=== PATIENT | female | born 1930 | race Caucasian/White ===

== ENCOUNTER → 2016-05-24 | Outpatient (CLI) | payer OTHER ==
[~2016-05-24] VITALS: Ht 149.9 cm; Wt 50.3 kg
[~2016-05-24] MED LIST: ADVAIR 100-501 EACH INH; ADVAIR 250-501 EACH INH; ALBUTEROL2.5 MG/0.5 INH; ALPRAZOLAM 0.50.5 MG PO; ASPIRIN325 PO; BUSPAR15 MG PO; BUSPIRONE HCL10 MG PO; CALCIUM CITRAT1 EA19 PO; CEFDINIR300 MG PO; CITRACAL + D C1 EACH PO; COLACE100 MG PO; CYMBALTA30 MG PO; FAMOTIDINE20 MG PO; FISHOIL PO; FOSAMAX PO; GLUCOPHAGE500 MG PO; HYDROCODON-ACE1 EAC8 PO; LEVAQUIN 500 M500 M2 PO; LIDODERM 5%1 PATC1 TRANSDERM; LIQUITUSS200 MG/5 M PO; LISINOPRIL10 MG PO; NEXIUM10 MG PO; NORCO 10-325 T1 EACH PO; PREDNISONE 10 M10 MG; PREDNISONE50 MG PO; PROAIR HFA8.5 GM; SIMVASTATIN40 MG PO; STOPAIN118 ML TP; TEARS NATURALE1 EACH OPHTHALMIC; TESSALON PERLE100 MG PO; TYLENOL325 MG PO; VITAMIN D1000 UNI1 PO; ZPAK PO; forteo
--- NOTE | ~2016-05-24 | HPC ---
[facility] [place] [address] PAIN MANAGEMENT CONSULTATION Name: SUDHIR WHARTON Room #: REG MIHIR Antony#: [id number] Admission: 05/24/16 Attend Phys: Bobby Quiñonez MD Discharge: Date of : 32 Report #: [id number] THIS REPORT FOR: //name// CC: Bobby Claros DATE OF SERVICE: 05/24/2016 Followup visit for severe pain in the right hip. The patient has significant degenerative osteoarthritic right hip. She has been told she is not a surgical candidate. She is here today for an injection. Her daughter is with her. Previous injections have been helpful, but the last one was not so much so. I told her that we would repeat the injection today hopefully providing some relief. Her last injection in our clinic was in April 2015. Pain today is described as severe, 8-9, is painful with all movements of the hip, radiates into the groin. MEDICATIONS: Reviewed. They are lidocaine patch, Cymbalta, hydrocodone, aspirin, albuterol, fluticasone, BuSpar, calcium, albuterol, alprazolam, Nexium, Zocor, Zestril. PHYSICAL EXAMINATION: This is a sweet 85-year-old. She is always so kind to me and complementary when she comes to our clinic. She has mild dementia. Blood pressure is 120/63, heart rate 88, respirations 16. She is able to move from sitting to standing position with complaints bitterly of all movements of the right hip. The Adam test is markedly positive with pain that radiates into the groin. She has no radiating radicular symptoms. Internal and external rotation of the hips in the supine position is nearly impossible due to pain. IMPRESSION: Severe osteoarthritis, right hip. This is very evident on x-ray. PROCEDURE: Right hip injection under fluoroscopic guidance. PROCEDURE NOTE: She was taken to the fluoroscopic suite, placed supine. Skin was prepped with ChloraPrep over the right hip. A 22-gauge needle was gently advanced to the neck of the femur where it was contacted and withdrawn slightly. I then injected 0.25 mL of Omnipaque arthrogram. This was followed by 5 mL of 0.5% lidocaine mixed with 40 mg of triamcinolone. Pain was 0 at discharge. Follow up as needed. By: [id number] Bobby Quiñonez MD /nt
[2016-05-24 13:10] VITALS: BP 120/63
== END ==
LOC: PAIN 07:13
DX: M16.11 Unilateral primary osteoarthritis, right hip (principal); I10 Essential (primary) hypertension; F17.210 Nicotine dependence, cigarettes, uncomplicated

== ENCOUNTER 2016-08-19 13:07 | Inpatient (IN) | payer OTHER ==
[~2016-08-19] VITALS: Ht 149.9 cm; Wt 51.3 kg
--- NOTE | ~2016-08-19 | HC ---
[facility] [place] [address] CONSULTATION Name: SUDHIR WHARTON Room #: 304-P ADM IN M.R.#: [id number] Admission: 08/19/16 Attend Phys: Addison Haile MD Discharge: Date of : 31 Report #: [id number] THIS REPORT FOR: //name// CC: Addison Claros DATE OF SERVICE: 08/19/2016 REQUESTING PHYSICIAN: Dr. Haile. HISTORY OF PRESENT ILLNESS: The patient is an 85-year-old female who presented to [facility] on 08/19/2016, she was brought in by her daughter and had a report of recurrent falls and also increasing shortness of breath and cough. She reportedly fell x 3 at the day of admission, she had a CT of her head, which revealed just chronic atrophy. Labs were significant only for a sodium of 135, hemoglobin 9.3. White blood cell count was elevated at 26. Chest x-ray revealed a pneumonia. The patient was admitted secondary to this and COPD. The patient has a chronic history of possibly nonadherence to medical management per daughter. The patient's unfortunately approximately 6 months ago and ever since then, she had stopped using DuoNebs q. 6 hours, which she had previously been on schedule as well as her Advair and additional medications. The patient's daughter has been checking on her frequently. Unfortunately, the patient has been alone during the days and has not been following instructions. There is some concern from the patient's daughter about her memory as well as from the patient. The patient also had developed signs according to the daughter of depression. She is currently on Cymbalta and in addition, BuSpar for anxiety. The patient has had gait instability despite the fact that she uses a walker at home. She denies current concerns including she does report she can hear rales and wheezing, but otherwise denies pain at the current time. PAST MEDICAL HISTORY: COPD, asthma, CAD with 2 stents, anemia, diabetes type 2, hypertension, hyperlipidemia and cataracts. SOCIAL HISTORY: History of tobacco abuse. Her in January, her daughter is setup as durable power of dealer sales manager. The patient is a DNR status at this time. There has been some concern recently that the patient had stated that she did not want to live any longer and wanted to go with her . She denies , though. PRIMARY CARE PHYSICIAN: Dr. Nakul Claros. MEDICATIONS: Albuterol nebulizer p.r.n., BuSpar 15 mg b.i.d., lisinopril 5 mg daily, Advair, aspirin 325 mg daily, Cymbalta 60 mg daily, Nexium 40 mg daily, vitamin D3 2000 international units daily, simvastatin 40 mg daily, Xanax 0.5 mg at bedtime, Mohler [place].r.[place] [address] CONSULTATION Name: SUDHIR WHARTON HESHAM Room #: 304-P [facility] IN M.R.#: [id number] Admission: 08/19/16 Attend Phys: Addison Haile MD Discharge: Date of : 31 Report #: [id number] FAMILY HISTORY: Mother with CAD. No known history of memory loss. SURGICAL HISTORY: Known cataract surgery previously. REVIEW OF SYSTEMS: GENERAL: The patient denies any significant weight changes including weight gain or weight loss. Does have a history of anorexia according to the daughter's report of the last 6 months. HEENT: No changes in hearing or vision, acutely. RESPIRATORY: Shortness of breath, cough and wheezing with audible rales per her report. CARDIOVASCULAR: Denies chest pain or palpitations. ABDOMEN: Denies nausea or vomiting. Does report decreased appetite. No apparent constipation or diarrhea. MUSCULOSKELETAL: Does report generalized weakness and recurrent falls. PHYSICAL EXAMINATION: This includes: VITAL SIGNS: Temperature 36.5 Celsius, pulse 71, respirations 19, blood pressure 96/63, 94% on 2 liters nasal cannula. GENERAL: The patient is alert, oriented, in no acute distress. HEENT: Extraocular muscles appear to be intact, normocephalic and atraumatic. LUNGS: Diffuse wheezing, expiratory and rales bilaterally. CARDIOVASCULAR: Regular rate and rhythm without murmur at this time. ABDOMEN: Soft, nontender to palpation times 4. Positive bowel sounds noted in all 4 quadrants, though diminished. EXTREMITIES: Diffuse muscle weakness noted bilaterally. No focal symptoms. NEUROLOGIC: Cranial nerves 2-12 appear to be grossly intact. 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 LABORATORY DATA: These include a sodium of 135, creatinine 0.8. Hemoglobin 9.3, white blood cell count 26,000. ASSESSMENT AND PLAN: The patient is an 85-year-old female with the following medical concerns. 1. Acute hypoxic respiratory failure. Appreciate pulmonary recommendations. I did recommend to the patient and family member that she has usp. The patient was not initially amenable to this, but I do believe she will eventually be accepting of this in order to get back home. 2. Pneumonia, management per primary team. 3. Dementia. I believe the patient to have dementia based on MoCA testing today. We will order further evaluation for this. However, I believe the patient likely had this long-term based on the daughter's descriptions. I will be starting Namenda on her today, concern for appetite suppression with Aricept. In addition, I believe depression may be influencing this as well. We will switch from Cymbalta. We are considering adding Wellbutrin to her current [facility] [address] [place] [address] CONSULTATION Name: SUDHIR WHARTON Room #: 304-P ADM IN M.R.#: [id number] Admission: 08/19/16 Attend Phys: Addison Haile MD Discharge: Date of : 31 Report #: [id number] regimen of Cymbalta. 4. Depression. with mirtazapine, we will start at low dosing 7.5 mg daily. We will need monitoring of blood pressure with regards to this. 5. Generalized deconditioning. Again, recommend a peak physical and occupational therapy to evaluate for usp placement. Did discuss placement after usp and they would prefer home placement overall, discussed home health would be necessary. We will discuss further on Tuesday. 6. Protein-calorie malnutrition. Discussed adding supplements. The patient is amenable to this. 7. Vitamin D deficiency. We will maximize to reduce fall risk. By: [id number] Anthony Cheema DO /nt
--- NOTE | ~2016-08-19 | EKG ---
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 : 1930 Requested By: Janae Solis Order Number: [id number] MD: Sandro Cannon Measurements Intervals [place] Rate: 96 P: 52 UT: 142 QRS: 33 QRSD: 102 T: 2 QT: 357 QTc: 452 Interpretive Statements Sinus rhythm Nonspecific ST and T wave abnormality Compared to ECG 08/24/2014 18:54:43 Atrial premature complex(es) no longer present Electronically Signed On 08-21-2016 12:00:44 CDT by Sandro Cannon [email or web address] <ELECTRONICALLY SIGNED> By: Sandro Cannon MD, [facility] 08/21/16 1200 1323 1323 Sandro Cannon MD, [facility] /EPI
[2016-08-19 13:07] VITALS: BP 108/47
[2016-08-19] MEDS ORDERED: NEXIUM40 MG PO (13:18)
[2016-08-19] MEDS ORDERED: CITRACAL + D M1 EACH PO (13:20)
[2016-08-19] MEDS ORDERED: VITAMIN D2000 UNIT PO (13:20)
[2016-08-19 13:50] LABS: URINE BLOOD NEGATIVE (Negative); URINE COLOR YELLOW; URINE GLUCOSE-RANDOM* NEGATIVE (Negative); URINE KETONES TRACE (Negative); URINE NITRITE NEGATIVE (Negative); URINE PROTEIN (DIPSTICK) 2+ (Negative)
[2016-08-19 13:53] LABS: ICTOTEST (BILI CONFIRMATORY) Negative (Negative); URINE BILIRUBIN NEGATIVE (Negative)
[2016-08-19 13:57] LABS: HEMATOCRIT 30.5 % (37.0-47.0); HEMOGLOBIN 9.3 gm/dL (12.0-15.0); MCHC 30.6 g/dL (28.0-37.0); MCV 75.2 fL (80.0-100.0); PLATELET COUNT 235 thou/uL (150-400); RBC 4.06 mil/uL (4.20-5.00); WBC 26.1 thou/uL (4.0-11.0)
[2016-08-19 14:00] LABS: MANUAL DIFF YES
[2016-08-19 14:02] LABS: CASTS None Seen /LPF (None Seen)
[2016-08-19 14:03] LABS: AMORPHOUS URATES Few /LPF (None Seen); BACTERIA 1-9 Few /HPF (None Seen); SQUAMOUS 0-3 Few /LPF (0-3); URINE RBC None Seen /HPF (0-2); URINE WBC None Seen /HPF (0-5)
[2016-08-19 14:06] LABS: ANION GAP 9 mmol/L (7-16); BUN 10 mg/dL (7-18); CALCIUM 9.2 mg/dL (8.5-10.1); CHLORIDE 98 mmol/L (98-107); CO2 27 mmol/L (21-32); CREATININE 0.9 mg/dL (0.6-1.0); GLUCOSE 170 mg/dL (74-106); POTASSIUM 4.1 mmol/L (3.5-5.1); SODIUM 134 mmol/L (136-145)
[2016-08-19 14:14] LABS: ALBUMIN 3.2 g/dL (3.4-5.0); ALKALINE PHOSPHATASE 58 U/L (46-116); SGOT 17 U/L (15-37); SGPT 14 U/L (30-65); TOTAL BILIRUBIN 1.1 mg/dL (<0.1-1.0); TOTAL PROTEIN 7.5 g/dL (6.4-8.2); TROPONIN-I < 0.04 ng/mL (<0.04-0.07)
[2016-08-19 14:16] LABS: ABSOLUTE NEUTROPHILS 23.5 thou/uL (1.4-8.2); PLATELET ESTIMATE NORMAL; TOTAL CELL COUNT 100
[2016-08-19 14:17] LABS: ANISOCYTOSIS 2+; HYPOCHROMASIA 1+; MICROCYTES 2+; POLYCHROMASIA SLIGHT
[2016-08-19 17:12] VITALS: BP 107/73
[2016-08-19 17:35] VITALS: BP 121/59
[2016-08-19 20:00] VITALS: BP 104/58
[2016-08-20 04:00] VITALS: BP 96/63
[2016-08-20 04:57] LABS: ALBUMIN 2.7 g/dL (3.4-5.0); CALCIUM 8.7 mg/dL (8.5-10.1); CREATININE 0.8 mg/dL (0.6-1.0); MAGNESIUM 2.1 mg/dL (1.8-2.4); POTASSIUM 4.3 mmol/L (3.5-5.1); TOTAL BILIRUBIN 0.6 mg/dL (<0.1-1.0)
[2016-08-20 08:15] VITALS: BP 100/51
[2016-08-20 17:35] VITALS: BP 102/45
[2016-08-20 19:50] VITALS: BP 124/66
[2016-08-21 04:00] VITALS: BP 118/67
[2016-08-21 06:52] LABS: HEMATOCRIT 26.5 % (37.0-47.0); HEMOGLOBIN 7.9 gm/dL (12.0-15.0); MCH 22.7 pg (26.0-34.0); MCHC 29.8 g/dL (28.0-37.0); MCV 76.1 fL (80.0-100.0); PLATELET COUNT 264 thou/uL (150-400); RBC 3.49 mil/uL (4.20-5.00); RDW 20.8 % (10.5-14.5); WBC 20.2 thou/uL (4.0-11.0)
[2016-08-21 06:53] LABS: MANUAL DIFF YES
[2016-08-21 07:01] LABS: CALCIUM 8.8 mg/dL (8.5-10.1); CREATININE 0.9 mg/dL (0.6-1.0); POTASSIUM 3.7 mmol/L (3.5-5.1)
[2016-08-21 07:38] LABS: TSH 0.968 uIU/mL (0.358-3.740)
[2016-08-21 07:55] VITALS: BP 116/60
[2016-08-21 10:50] LABS: ABSOLUTE NEUTROPHILS 19.8 thou/uL (1.4-8.2); ANISOCYTOSIS 2+; HYPOCHROMASIA 2+; POLYCHROMASIA SLIGHT; TOTAL CELL COUNT 100
[2016-08-21 16:30] VITALS: BP 109/55
[2016-08-21 20:00] VITALS: BP 123/75
[2016-08-22 03:50] VITALS: BP 113/63
[2016-08-22 08:00] VITALS: BP 145/81
[2016-08-22 11:59] LABS: HEMATOCRIT 26.1 % (37.0-47.0); MCH 22.9 pg (26.0-34.0); MCHC 30.8 g/dL (28.0-37.0); MCV 74.5 fL (80.0-100.0); PLATELET COUNT 321 thou/uL (150-400); RDW 20.9 % (10.5-14.5); WBC 16.5 thou/uL (4.0-11.0)
[2016-08-22 12:03] LABS: MANUAL DIFF YES
[2016-08-22 12:21] LABS: CALCIUM 8.6 mg/dL (8.5-10.1); POTASSIUM 4.9 mmol/L (3.5-5.1)
[2016-08-22 13:06] LABS: ABSOLUTE NEUTROPHILS 15.3 thou/uL (1.4-8.2); METAMYELOCYTES 1 %; TOTAL CELL COUNT 100
[2016-08-22 13:07] LABS: ANISOCYTOSIS 1+
[2016-08-22 13:08] LABS: HYPOCHROMASIA 1+
[2016-08-22 16:00] VITALS: BP 133/71
[2016-08-22 20:00] VITALS: BP 122/66
[2016-08-23 04:00] VITALS: BP 121/79
[2016-08-23 09:12] VITALS: BP 133/43
[2016-08-23] MEDS ORDERED: LEVAQUIN 750 M750 MG PO (15:44)
[2016-08-23] MEDS ORDERED: FLOMAX0.4 MG PO (15:44)
[2016-08-23] MEDS ORDERED: PREDNISONE 10 M10 MG PO (15:45)
== END 2016-08-23 17:47 | DRG 871 ==
LOC: ER 13:07 → 3N 15:17 → EROBS 15:17 → 3N 17:04
PROVIDERS: Family Medicine; Hospitalist; Nurse Practitioner; Physician Assistant
DX: A41.9 Sepsis, unspecified organism (principal); J96.01 Acute respiratory failure with hypoxia; J18.9 Pneumonia, unspecified organism; E43 Unspecified severe protein-calorie malnutrition; J44.0 Chronic obstructive pulmonary disease with (acute) lower respiratory infection; E11.9 Type 2 diabetes mellitus without complications; D72.829 Elevated white blood cell count, unspecified; R29.6 Repeated falls; I10 Essential (primary) hypertension; E78.5 Hyperlipidemia, unspecified; G89.29 Other chronic pain; M54.9 Dorsalgia, unspecified; I25.10 Atherosclerotic heart disease of native coronary artery without angina pectoris; R33.9 Retention of urine, unspecified; F03.90 Unspecified dementia, unspecified severity, without behavioral disturbance, psychotic disturbance, mood disturbance, and anxiety; F32.9 Major depressive disorder, single episode, unspecified; E55.9 Vitamin D deficiency, unspecified; M19.90 Unspecified osteoarthritis, unspecified site; F17.210 Nicotine dependence, cigarettes, uncomplicated; R62.7 Adult failure to thrive; K21.9 Gastro-esophageal reflux disease without esophagitis; Z68.22 Body mass index [BMI] 22.0-22.9, adult; Z79.899 Other long term (current) drug therapy; Z90.49 Acquired absence of other specified parts of digestive tract; Z98.62 Peripheral vascular angioplasty status; Z91.14 Patient's other noncompliance with medication regimen; Z71.6 Tobacco abuse counseling; Z98.49 Cataract extraction status, unspecified eye; Z82.49 Family history of ischemic heart disease and other diseases of the circulatory system; Z80.9 Family history of malignant neoplasm, unspecified; Z79.82 Long term (current) use of aspirin
CPT/HCPCS: 10096

== ENCOUNTER 2016-12-01 03:03 | Emergency (ER) | payer OTHER ==
[~2016-12-01] VITALS: Ht 149.9 cm; Wt 48.1 kg
--- NOTE | ~2016-12-01 | EKG ---
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1930 Requested By: Vik Fernandez Order Number: [id number] MD: Sandro Cannon Measurements Intervals [place] Rate: 90 P: 60 NV: 132 QRS: 51 QRSD: 102 T: -13 QT: 369 QTc: 452 Interpretive Statements Sinus rhythm Nonspecific ST and T wave abnormality Compared to ECG 08/19/2016 13:23:27 No significant change was found Electronically Signed On 12-01-2016 8:06:53 CDT by Sandro Cnanon [email or web address] <ELECTRONICALLY SIGNED> By: Sandro Cannon MD, [facility] 12/01/16 0806 0443 2 Sandro Cannon MD, [facility] /EPI
[~2016-12-01 03:03] MED LIST changes: +CITRACAL + D M1 EACH PO; +FLOMAX0.4 MG PO; +LEVAQUIN 750 M750 MG PO; +NEXIUM40 MG PO; +PREDNISONE 10 M10 MG PO; +VITAMIN D2000 UNIT PO
[2016-12-01 04:38] LABS: HEMATOCRIT 38.5 % (37.0-47.0); HEMOGLOBIN 12.5 gm/dL (12.0-15.0); MCH 30.8 pg (26.0-34.0); MCHC 32.5 g/dL (28.0-37.0); MCV 94.6 fL (80.0-100.0); PLATELET COUNT 343 thou/uL (150-400); RBC 4.07 mil/uL (4.20-5.00); RDW 18.9 % (10.5-14.5); WBC 17.6 thou/uL (4.0-11.0)
[2016-12-01 04:41] LABS: MANUAL DIFF YES
[2016-12-01 04:50] LABS: CALCIUM 9.4 mg/dL (8.5-10.1); CREATININE 0.8 mg/dL (0.6-1.0); POTASSIUM 4.8 mmol/L (3.5-5.1)
[2016-12-01 04:53] LABS: APTT 25.2 Seconds (24.5-32.8); PROTIME 10.1 Seconds (9.3-11.4)
[2016-12-01 04:58] LABS: ABSOLUTE NEUTROPHILS 16.2 thou/uL (1.4-8.2); ANISOCYTOSIS 2+; MYELOCYTES 1 %; TOTAL CELL COUNT 100
[2016-12-01 04:59] LABS: LARGE PLATELETS OCCASIONAL
[2016-12-01 05:00] LABS: POLYCHROMASIA OCCASIONAL
[2016-12-01 05:01] LABS: PLATELET ESTIMATE NORMAL
[2016-12-01 06:05] VITALS: BP 116/74
== END 2016-12-01 06:19 | disposition short-term general hospital (02) ==
LOC: ER 03:03
PROVIDERS: Emergency Medicine
DX: S01.81XA Laceration without foreign body of other part of head, initial encounter (principal); S06.5X0A Traumatic subdural hemorrhage without loss of consciousness, initial encounter; E11.9 Type 2 diabetes mellitus without complications; M19.90 Unspecified osteoarthritis, unspecified site; I10 Essential (primary) hypertension; E78.5 Hyperlipidemia, unspecified; J45.909 Unspecified asthma, uncomplicated; F17.210 Nicotine dependence, cigarettes, uncomplicated; W18.30XA Fall on same level, unspecified, initial encounter; Y93.89 Activity, other specified; Y92.89 Other specified places as the place of occurrence of the external cause; Y99.8 Other external cause status